=== PATIENT | female | born 1945 | race Caucasian/White ===

== ENCOUNTER → 2023-10-14 | Outpatient (CLI) | payer MEDICARE ==
[~2023-10-14] MED LIST: PROHANCE 279.3MG/ML 5ML VIAL ONE
== END ==
LOC: M PLAIMG 07:42
PROVIDERS: ATTEND Physician Assistant
DX: H90.3 Sensorineural hearing loss, bilateral (principal); Z98.41 Cataract extraction status, right eye; Z98.42 Cataract extraction status, left eye
CPT/HCPCS: 70553; A9576